=== PATIENT | female | born 1950 | race Caucasian/White ===

== ENCOUNTER 2024-07-17 17:53 | Outpatient (CLI) | payer MEDICARE, MEDICAID, SELFPAY | END 2024-07-17 17:54 | disposition home or self-care (01) | LOC: AMB 07-18 03:46 | PROVIDERS: Visit Provider Family Medicine | DX: R41.82 Altered mental status, unspecified (principal); R11.2 Nausea with vomiting, unspecified | CPT/HCPCS: A0425; A0427 ==

== ENCOUNTER 2024-07-17 18:19 | Observation (INO) | payer MEDICARE, MEDICAID, SELFPAY ==
[2024-07-17] VITALS (7 sets, daily range): BP systolic 125–198; BP diastolic 62–100; PULSE 82–96; RESP 20–32; TEMP 36.9–37.2; O2SAT 84–97; BMI 31.6; BMI 32.9
--- NOTE | 2024-07-17 18:50 | CRLHL7_ITS ---
For Patients: As a result of the Century Cures Act, medical imaging exams and procedure reports are released immediately into your electronic medical record. You may view this report before your referring provider. If you have questions, please contact your health care provider. Indication: Trauma. Technique: CT of the cervical spine performed without IV contrast. Comparison: None available. Findings: The images are severely degraded by patient motion. Suboptimal evaluation for subtle fracture due to the degree of motion artifact. There is no gross vertebral body height loss. Moderate reversal the cervical lordosis. [id number] multilevel disc degeneration. Moderate multilevel cervical spondylosis, with varying degrees of moderate neural foraminal and mild to moderate spinal canal stenosis. The visualized lung apices appear clear. No prevertebral soft tissue swelling. Impression: 1. Severely degraded by patient motion. 2. No gross acute osseous injury as visualized given the degree of motion artifact. 3. Moderate multilevel spondylosis. Please note that all CT scans at this facility use dose modulation, iterative reconstruction, and/or weight-based dosing when appropriate to reduce radiation dose to as low as reasonably achievable. Dictated by Bin Vasquez MD @ 07/17/2024 8:41:43 PM (Electronically Signed)
--- NOTE | 2024-07-17 18:50 | CRLHL7_ITS ---
For Patients: As a result of the Century Cures Act, medical imaging exams and procedure reports are released immediately into your electronic medical record. You may view this report before your referring provider. If you have questions, please contact your health care provider. INDICATION: Fall, shortness of breath. TECHNIQUE: Chest 1 view. COMPARISON: None. FINDINGS: Cardiovascular and mediastinum: Borderline enlarged cardiac silhouette despite portable technique. Atherosclerotic and uncoiled thoracic aorta. Lungs and pleural spaces: Mild diffuse increased interstitial lung markings. Prominent pulmonary arteries within the samina bilaterally. No definite pleural effusion. No pneumothorax. Bones and soft tissues: Suture anchor in the right humeral head. Otherwise, unremarkable for age. IMPRESSION: 1. Mild diffuse increased interstitial lung markings, may represent pulmonary edema. 2. Prominent pulmonary arteries within the samina bilaterally, may reflect pulmonary arterial hypertension. Dictated by Justin Hernandez MD @ 07/17/2024 8:35:26 PM (Electronically Signed)
--- NOTE | 2024-07-17 18:51 | CRLHL7_ITS ---
For Patients: As a result of the Century Cures Act, medical imaging exams and procedure reports are released immediately into your electronic medical record. You may view this report before your referring provider. If you have questions, please contact your health care provider. Indication : Trauma. Technique : CT of the brain without intravenous contrast. Comparison: None relevant available at the time of interpretation. Findings: No acute blurring of the phan-white differentiation. There is no intracranial hemorrhage. The ventricles are proportionate to the cerebral sulci. The 4th ventricle is midline. Basal cisterns appear patent. No abnormal extra-axial fluid collection identified. Moderate parenchymal volume loss. There is moderate patchy periventricular hypodensity, favored to represent chronic ischemic microvascular disease. There is no intracranial mass, mass effect or midline shift identified. Severe dolichoectasia of the vertebrobasilar system. No depressed calvarial fracture. Impression: 1. No acute intracranial process. 2. Moderate chronic ischemic microvascular disease. 3. Severe dolichoectasia of the vertebrobasilar system. Please note that all CT scans at this facility use dose modulation, iterative reconstruction, and/or weight-based dosing when appropriate to reduce radiation dose to as low as reasonably achievable. Dictated by Bin Vasquez MD @ 07/17/2024 8:33:56 PM (Electronically Signed)
--- NOTE | 2024-07-17 19:12 | ED_ITS ---
HPI - General Adult General Chief complaint: Weakness <Donna Dial MD - Last Filed: 07/17/24 20:05> Stated complaint: ambulance <Donna Dial MD - Last Filed: 07/17/24 20:05> Time Seen by Provider: 07/17/24 18:23 <Donna Dial MD - Last Filed: 07/17/24 20:05> Source: EMS <Donna Dial MD - Last Filed: 07/17/24 20:05> Mode of arrival: EMS <Donna Dial MD - Last Filed: 07/17/24 20:05> Limitations: other (Dementia) <Donna Dial MD - Last Filed: 07/17/24 20:05> History of Present Illness HPI narrative: 73-year-old female presenting to the ER today because the staff was concerned about frequent falling. Per the staff at [address] [place] [address], patient has fallen twice in the last 24 hours. Unclear if she has hit her head or not. Patient has been more confused than usual, not making a lot of sense when people speak to her. EMS also found her to be slightly hypoxic. Patient does have a history of dementia that is described as severe with agitation, COPD, gastritis, history of falling, hypo Lesley Pau, diabetes, GERD, hypertension, hypothyroidism. Patient has a new POLST that was signed by her daughter 2 days ago which states that it is comfort cares only including no transfer to the hospital for life- sustaining treatment. Because of this I called the daughter today to make sure she knew that the patient had indeed been transferred to the hospital, patient's daughter, Seven, states that what she meant to fill out was selective treatment and that she does want the patient to be treated for treatable causes of illness, she does not want her to be intubated and no CPR. I discussed with her that she had checked comfort focused treatment only and patient's daughter states that this is a mistake. <Donna Dial MD - Last Filed: 07/17/24 20:05> Related Data Allergies/adverse reactions: Allergies Allergy/AdvReac Type Severity Reaction Status Date / Time codeine Allergy Verified 07/17/24 18:24 <Donna Dial MD - Last Filed: 07/17/24 20:05> Review of Systems Status of ROS: Reports: unobtainable due to mental status <Donna Dial MD - Last Filed: 07/17/24 20:05> [facility] Social History: Social History Non-prescribed substance use: denies use <Donna Dial MD - Last Filed: 07/17/24 20:05> Exam Narrative: Exam Narrative: Overweight patient in no acute distress. Cooperative, follows commands. GCS is 15. She does not make any sense. She answers questions with things that have nothing to do with the question asked. HEENT: Normocephalic atraumatic. Pupils are equally round reactive to light. Extraocular muscles are intact. Conjunctivae are moist without any icterus noted. Dry mucous membranes. Posterior pharynx is normal. Neck is soft. She does not appear uncomfortable with palpation of the cervical spine. Cardiovascular: Heart is regular rate and rhythm S1 and S2 are present without any murmurs. Lungs: Patient has decreased breath sounds bilaterally with bilateral end- expiratory crackles at the bases. Abdomen: Soft and nontender nondistended with normal bowel sounds. No guarding or rebound. Extremities: Bilateral lower extremities are without edema. Skin: Well perfused. <Donna Dial MD - Last Filed: 07/17/24 20:05> Const: Vital Signs, click to edit/add: Vital Signs - 24 hr 07/17/24 18:26 07/17/24 18:36 07/17/24 18:45 Temperature 98.5 F Pulse Rate 96 89 Pulse Rate [Pulse Oximeter] 96 Respiratory Rate 32 H Blood Pressure Blood Pressure [Ri ght Forearm] 198/100 H Pulse Oximetry 84 L 92 94 Oxygen Delivery Me thod Room Air Nasal Cannula Oxygen Flow Rate 3 07/17/24 19:04 07/17/24 19:15 07/17/24 19:28 Temperature Pulse Rate 92 Pulse Rate [Pulse Oximeter] Respiratory Rate Blood Pressure 180/97 H Blood Pressure [Ri ght Forearm] Pulse Oximetry 97 92 Oxygen Delivery Me thod Room Air Oxygen Flow Rate <Donna Dial MD - Last Filed: 07/17/24 20:05> Vital Signs, click to edit/add: Vital Signs - 24 hr 07/17/24 18:26 07/17/24 18:36 08/17/24 18:45 Temperature 98.5 F Pulse Rate 96 89 Pulse Rate [Pulse Oximeter] 96 Respiratory Rate 32 H Blood Pressure Blood Pressure [Ri ght Forearm] 198/100 H Pulse Oximetry 84 L 92 94 Oxygen Delivery Me thod Room Air Nasal Cannula Oxygen Flow Rate 3 07/17/24 19:04 07/17/24 19:15 07/17/24 19:28 Temperature Pulse Rate 92 Pulse Rate [Pulse Oximeter] Respiratory Rate Blood Pressure 180/97 H Blood Pressure [Ri ght Forearm] Pulse Oximetry 97 92 Oxygen Delivery Me thod Room Air Oxygen Flow Rate <Quyen Cade MD - Last Filed: 07/17/24 23:37> Course Course ED Course: EKG, read by me, shows normal sinus rhythm with a pulse of 94. Oxygen saturation was 92% on room air while in the ER. lab work unremarkable. Imaging pending at this time. <Donna Dial MD - Last Filed: 07/17/24 20:05> Vital Signs Vital signs: Initial Vital Signs Temperature 98.5 F 07/17/24 18:26 Temperature Source Temporal Artery Scan 07/17/24 18:26 Pulse Rate 96 07/17/24 18:26 Pulse Rhythm Regular 07/17/24 18:26 Respiratory Rate 32 H 07/17/24 18:26 Blood Pressure 198/100 H 07/17/24 18:26 Blood Pressure Mean 132 H 07/17/24 18:26 Blood Pressure Position Supine 07/17/24 18:26 Pulse Oximetry 84 L 07/17/24 18:26 Oxygen Delivery Method Room Air 07/17/24 18:26 Vital Signs Temperature 98.5 F 07/17/24 18:26 Pulse Rate 96 07/17/24 18:26 Respiratory Rate 32 H 07/17/24 18:26 Blood Pressure 198/100 H 07/17/24 18:26 Pulse Oximetry 84 L 07/17/24 18:26 Oxygen Delivery Method Room Air 07/17/24 18:26 Temperature 98.5 F 07/17/24 18:26 Pulse Rate 92 07/17/24 19:15 Respiratory Rate 32 H 07/17/24 18:26 Blood Pressure 180/97 H 07/17/24 19:04 Pulse Oximetry 92 07/17/24 19:28 Oxygen Delivery Method Room Air 07/17/24 19:28 Oxygen Flow Rate 3 07/17/24 18:45 <Donna Dial MD - Last Filed: 07/17/24 20:05> Initial Vital Signs Temperature 98.5 F 07/17/24 18:26 Temperature Source Temporal Artery Scan 07/17/24 18:26 Pulse Rate 96 07/17/24 18:26 Pulse Rhythm Regular 07/17/24 18:26 Respiratory Rate 32 H 07/17/24 18:26 Blood Pressure 198/100 H 07/17/24 18:26 Blood Pressure Mean 132 H 07/17/24 18:26 Blood Pressure Position Supine 07/17/24 18:26 Pulse Oximetry 84 L 07/17/24 18:26 Oxygen Delivery Method Room Air 07/17/24 18:26 Vital Signs Temperature 98.5 F 07/17/24 18:26 Pulse Rate 96 07/17/24 18:26 Respiratory Rate 32 H 07/17/24 18:26 Blood Pressure 198/100 H 07/17/24 18:26 Pulse Oximetry 84 L 07/17/24 18:26 Oxygen Delivery Method Room Air 07/17/24 18:26 Temperature 98.5 F 07/17/24 18:26 Pulse Rate 92 07/17/24 19:15 Respiratory Rate 32 H 07/17/24 18:26 Blood Pressure 180/97 H 07/17/24 19:04 Pulse Oximetry 92 07/17/24 19:28 Oxygen Delivery Method Room Air 07/17/24 19:28 Oxygen Flow Rate 3 07/17/24 18:45 <Quyen Cade MD - Last Filed: 07/17/24 23:37> Medications Administered Medications: Generic Name Dose Route Start Last Admin Trade Name Freq PRN Reason Stop Dose Admin Furosemide 40 mg 07/17/24 22:38 07/17/24 22:44 Furosemide 40 Mg Tablet PO 07/17/24 22:39 40 mg ONCE ONE Administration Discontinued Medications Generic Name Dose Route Start Last Admin Trade Name Freq PRN Reason Stop Dose Admin Furosemide 40 mg 07/17/24 20:40 07/17/24 22:44 Furosemide 10 Mg/Ml Inj IVP 07/17/24 20:41 Not Given ONCE ONE Potassium Bicarbonate 50 meq 07/17/24 20:40 07/17/24 21:00 Potassium Bicarb 25 Meq Effervescent Tab PO 07/17/24 20:41 50 meq ONCE ONE Administration <Donna Dial MD - Last Filed: 07/17/24 20:05> Generic Name Dose Route Start Last Admin Trade Name Freq PRN Reason Stop Dose Admin Furosemide 40 mg 07/17/24 22:38 07/17/24 22:44 Furosemide 40 Mg Tablet PO 07/17/24 22:39 40 mg ONCE ONE Administration Discontinued Medications Generic Name Dose Route Start Last Admin Trade Name Freq PRN Reason Stop Dose Admin Furosemide 40 mg 07/17/24 20:40 07/17/24 22:44 Furosemide 10 Mg/Ml Inj IVP 07/17/24 20:41 Not Given ONCE ONE Potassium Bicarbonate 50 meq 07/17/24 20:40 07/17/24 21:00 Potassium Bicarb 25 Meq Effervescent Tab PO 07/17/24 20:41 50 meq ONCE ONE Administration <Quyen Cade MD - Last Filed: 07/17/24 23:37> Medical Decision Making MDM Narrative Medical decision making narrative: 73-year-old female with dementia, frequent falls. <Donna Dial MD - Last Filed: 07/17/24 20:05> 73-year-old female with dementia, frequent falls. I took this patient over from . Currently pending were a CT of the head neck, radiological over-read of the chest x-ray and laboratory findings. Patient does have elevated proBNP with no previous values for comparison. While she did not have any acute lower extremity edema rales her chest x-ray definitely does look like increased pulmonary edema. The patient was given Lasix 40 mg p.o. she did not have an IV in at this time. She was also given potassium 50 mEq as potassium is low at 3.2. COVID was negative. Nursing staff notes that trying to get patient up to the commode involved significant assistance. Nursing staff is able to talk to [employer] and they state that this patient's daughter actually works at [employer] and she was admitted as she did need 2 person help to move from bed to chair and had dementia. However, in the last few days they note that she is seeing things and she requires much more assistance and this is been a change. On my exam patient is pleasant. She has occasional odd statement but is smiling. Following simple commands. Moving all extremities. Face symmetrical. Heart with a regular rate and rhythm. Lungs are with expiratory wheezing. No crackles are noted. Abdomen is soft nontender. Lower extremities with scant peripheral edema. Assessment/plan: 1. New onset congestive heart failure-proBNP elevated to 1300 with no previous values for comparison and chest x-ray positive for increased lung markings/pulmonary edema. Lasix 40 mg p.o. initially given as we were hopeful that perhaps we could get Galilea back to her usp. However she is so weak and therefore will need to keep her in the hospital. She will have an IV placed. Will add the EKG as well as troponin to current labs. Addendum: Troponin is negative and EKG is reassuring. 2. Hypokalemia-3.2 upon initial check. Have given her 50 mEq p.o.. 3. Weakness and increased confusion-patient does have baseline dementia but per the usp much more confusion in the past 48 hours. white count within normal limits and COVID is negative. Lactate normal. CRP P elevated at 2.8. Currently awaiting urinalysis. Addendum: Urinalysis without evidence of UTI. 4. Disposition-admit under the care of Dr. Skaggs, hospitalist. <Quyen Cade MD - Last Filed: 07/17/24 23:37> Lab Data Labs: Lab Results 07/17/24 07/17/24 07/17/24 Range/Units 19:12 22:20 22:32 WBC 9.96 (4.50-11.00) K/uL RBC 4.29 (4.00-5.20) m/uL Hgb 12.1 (12.0-16.0) gm/dL Hct 39.6 (33.0-51.0) % MCV 92 (80-100) fL MCH 28 (26-34) pg MCHC 31 L (32-36) gm/dL RDW Coeff of Jase 15.2 (11.5-15.5) % Plt Count 164 (140-440) K/uL Neut % (Auto) 84.7 H (42.0-72.0) % Lymph % (Auto) 9.0 L (20-44) % [place] % (Auto) 4.7 (0.0-11.0) % Eos % (Auto) 1.1 (0.0-7.0) % Baso % (Auto) 0.3 (0.0-3.0) % Neut # (Auto) 8.40 H (1.7-7.0) K/uL Lymph # (Auto) 0.90 (0.90-2.90) K/uL [place] # (Auto) 0.50 (0.00-0.90) K/UL Eos # (Auto) 0.11 (0.00-0.50) K/uL Baso # (Auto) 0.03 (0.00-0.30) K/uL Abs Immat Gran (auto) 0.02 (0.00-0.30) K/uL Imm/Tot Granulo (auto) 0.2 % Sodium 141 (135-149) mmol/L Potassium 3.2 L (3.6-5.1) mmol/L Chloride 107 (96-114) mmol/L Carbon Dioxide 27 (20-32) mmol/L Anion Gap 7 (7-15) mEq/L BUN 14 (7-30) mg/dL Creatinine 0.7 (0.5-1.5) mg/dL Estimated Creat Clear 49.03 Estimated GFR 90 ml/min Glucose 110 (60-115) mg/dL Lactate 1.5 (0.5-1.9) mmol/L Calcium 8.9 (8.4-10.6) mg/dL Magnesium 1.7 (1.5-2.6) mg/dL Total Bilirubin 0.7 (0.1-1.5) mg/dL Direct Bilirubin 0.4 (0.0-0.5) mg/dL AST 17 (12-35) U/L ALT 16 (4-35) U/L Alkaline Phosphatase 82 (40-150) U/L Troponin I < 0.01 L (0.01-0.04) ng/mL C-Reactive Protein 2.8 H (0.5-1.0) mg/dL NT-Pro-B Natriuret Pep 1300 pg/mL Total Protein 6.9 (6.0-8.3) g/dL Albumin 4.3 (3.3-5.0) g/dL Urine Color Yellow (Yellow) Urine Appearance Slightly Cloudy A (Clear) Urine pH 5.5 (5.0-8.5) Ur Specific [place] 1.020 (1.000-1.030) Urine Protein Negative (Negative) Urine Glucose (UA) Negative (Negative) Urine Ketones Negative (Negative) Urine Blood 3+ A (Negative) Urine Nitrite Negative (Negative) Urine Bilirubin Negative (Negative) Urine Urobilinogen 0.2 (0.2-1.0) Ur Leukocyte Esterase Negative (Negative) Urine RBC 2-5 A (0-2) Urine WBC 0-2 (0-5) Ur Squamous Epith Cells Few (None-Few) Urine Bacteria None (None) SARS-CoV-2 (PCR) Negative SARS-CoV-2 (Negative) Influenza Type A (PCR) Negative PCR FLU A (Negative) Influenza Type B (PCR) Negative PCR FLU B (Negative) RSV (PCR) Negative PCR RSV (Negative) Lab Acknowledgement Test Added <Donna Dial MD - Last Filed: 07/17/24 20:05> Lab Results 07/17/24 07/17/24 07/17/24 Range/Units 19:12 22:20 22:32 WBC 9.96 (4.50-11.00) K/uL RBC 4.29 (4.00-5.20) m/uL Hgb 12.1 (12.0-16.0) gm/dL Hct 39.6 (33.0-51.0) % MCV 92 (80-100) fL MCH 28 (26-34) pg MCHC 31 L (32-36) gm/dL RDW Coeff of Jase 15.2 (11.5-15.5) % Plt Count 164 (140-440) K/uL Neut % (Auto) 84.7 H (42.0-72.0) % Lymph % (Auto) 9.0 L (20-44) % [place] % (Auto) 4.7 (0.0-11.0) % Eos % (Auto) 1.1 (0.0-7.0) % Baso % (Auto) 0.3 (0.0-3.0) % Neut # (Auto) 8.40 H (1.7-7.0) K/uL Lymph # (Auto) 0.90 (0.90-2.90) K/uL [place] # (Auto) 0.50 (0.00-0.90) K/UL Eos # (Auto) 0.11 (0.00-0.50) K/uL Baso # (Auto) 0.03 (0.00-0.30) K/uL Abs Immat Gran (auto) 0.02 (0.00-0.30) K/uL Imm/Tot Granulo (auto) 0.2 % Sodium 141 (135-149) mmol/L Potassium 3.2 L (3.6-5.1) mmol/L Chloride 107 (96-114) mmol/L Carbon Dioxide 27 (20-32) mmol/L Anion Gap 7 (7-15) mEq/L BUN 14 (7-30) mg/dL Creatinine 0.7 (0.5-1.5) mg/dL Estimated Creat Clear 49.03 Estimated GFR 90 ml/min Glucose 110 (60-115) mg/dL Lactate 1.5 (0.5-1.9) mmol/L Calcium 8.9 (8.4-10.6) mg/dL Magnesium 1.7 (1.5-2.6) mg/dL Total Bilirubin 0.7 (0.1-1.5) mg/dL Direct Bilirubin 0.4 (0.0-0.5) mg/dL AST 17 (12-35) U/L ALT 16 (4-35) U/L Alkaline Phosphatase 82 (40-150) U/L Troponin I < 0.01 L (0.01-0.04) ng/mL C-Reactive Protein 2.8 H (0.5-1.0) mg/dL NT-Pro-B Natriuret Pep 1300 pg/mL Total Protein 6.9 (6.0-8.3) g/dL Albumin 4.3 (3.3-5.0) g/dL Urine Color Yellow (Yellow) Urine Appearance Slightly Cloudy A (Clear) Urine pH 5.5 (5.0-8.5) Ur Specific [place] 1.020 (1.000-1.030) Urine Protein Negative (Negative) Urine Glucose (UA) Negative (Negative) Urine Ketones Negative (Negative) Urine Blood 3+ A (Negative) Urine Nitrite Negative (Negative) Urine Bilirubin Negative (Negative) Urine Urobilinogen 0.2 (0.2-1.0) Ur Leukocyte Esterase Negative (Negative) Urine RBC 2-5 A (0-2) Urine WBC 0-2 (0-5) Ur Squamous Epith Cells Few (None-Few) Urine Bacteria None (None) SARS-CoV-2 (PCR) Negative SARS-CoV-2 (Negative) Influenza Type A (PCR) Negative PCR FLU A (Negative) Influenza Type B (PCR) Negative PCR FLU B (Negative) RSV (PCR) Negative PCR RSV (Negative) Lab Acknowledgement Test Added <Quyen Cade MD - Last Filed: 07/17/24 23:37> Imaging Data Chest x-ray: Attestation: I have reviewed the pertinent imaging results. <Quyen Cade MD - Last Filed: 07/17/24 23:37> Radiologist's impression: Cardiovascular and mediastinum: Borderline enlarged cardiac silhouette despite portable technique. Atherosclerotic and uncoiled thoracic aorta. Lungs and pleural spaces: Mild diffuse increased interstitial lung markings. Prominent pulmonary arteries within the samina bilaterally. No definite pleural effusion. No pneumothorax. Bones and soft tissues: Suture anchor in the right humeral head. Otherwise, unremarkable for age. IMPRESSION: 1. Mild diffuse increased interstitial lung markings, may represent pulmonary edema. 2. Prominent pulmonary arteries within the samina bilaterally, may reflect pulmonary arterial hypertension. <Quyen Cade MD - Last Filed: 07/17/24 23:37> CT scan - head: Attestation: I have reviewed the pertinent imaging results. <Quyen Cade MD - Last Filed: 07/17/24 23:37> Radiologist's impression: No acute blurring of the phan-white differentiation. There is no intracranial hemorrhage. The ventricles are proportionate to the cerebral sulci. The 4th ventricle is midline. Basal cisterns appear patent. No abnormal extra-axial fluid collection identified. Moderate parenchymal volume loss. There is moderate patchy periventricular hypodensity, favored to represent chronic ischemic microvascular disease. There is no intracranial mass, mass effect or midline shift identified. Severe dolichoectasia of the vertebrobasilar system. No depressed calvarial fracture. Impression: 1. No acute intracranial process. 2. Moderate chronic ischemic microvascular disease. 3. Severe dolichoectasia of the vertebrobasilar system. <Quyen Cade MD - Last Filed: 07/17/24 23:37> Cervical spine CT: Attestation: I have reviewed the pertinent imaging results. <Quyen Cade MD - Last Filed: 07/17/24 23:37> My impression: I do not note any acute findings <Quyen Cade MD - Last Filed: 07/17/24 23:37> Radiologist's impression: The images are severely degraded by patient motion. Suboptimal evaluation for subtle fracture due to the degree of motion artifact. There is no gross vertebral body height loss. Moderate reversal the cervical lordosis. [id number] multilevel disc degeneration. Moderate multilevel cervical spondylosis, with varying degrees of moderate neural foraminal and mild to moderate spinal canal stenosis. The visualized lung apices appear clear. No prevertebral soft tissue swelling. Impression: 1. Severely degraded by patient motion. 2. No gross acute osseous injury as visualized given the degree of motion artifact. 3. Moderate multilevel spondylosis. <Quyen Cade MD - Last Filed: 07/17/24 23:37> ECG Data Attestation: I personally reviewed and interpreted this ECG as follows: <Quyen Cade MD - Last Filed: 07/17/24 23:37> Interpretation: EKG by my read shows sinus rhythm. Occasional PVC see. I do not note any acute ST or T-wave changes. QT and NV intervals within normal limits. <Quyen Cade MD - Last Filed: 07/17/24 23:37> Discharge Plan Discharge Clinical Impression: Falls frequently, New onset of congestive heart failure Dementia Qualifiers: Dementia type: unspecified type Dementia severity: unspecified severity Dementia behavioral or psychological symptom: unspecified whether behavioral, psychotic, or mood disturbance or anxiety Qualified Code(s): F03.90 - Unspecified dementia, unspecified severity, without behavioral disturbance, psychotic disturbance, mood disturbance, and anxiety <Donan Dial MD - Last Filed: 07/17/24 20:05> Patient Disposition: Admitted As Observation <Donna Dial MD - Last Filed: 07/17/24 20:05> Condition: Stable <Donna Dial MD - Last Filed: 07/17/24 20:05>
[2024-07-17 19:18] LABS: Lactate* 1.5 mmol/L (0.5-1.9)
[2024-07-17 19:20] LABS: Basophils Absolute Auto 0.03 K/uL (0.00-0.30); Basophils Percent Auto 0.3 % (0.0-3.0); Eosinophils Absolute Auto 0.11 K/uL (0.00-0.50); Eosinophils Percent Auto 1.1 % (0.0-7.0); Hematocrit 39.6 % (33.0-51.0); Hemoglobin* 12.1 gm/dL (12.0-16.0); Immature Granulocytes Abs Auto 0.02 K/uL (0.00-0.30); Immature Granulocytes Pct Auto 0.2 %; Mean Corpuscular HGB Conc 31 gm/dL (32-36); Mean Corpuscular Hemoglobin 28 pg (26-34); Mean Corpuscular Volume 92 fL (80-100); Monocytes Percent Auto 4.7 % (0.0-11.0); Neutrophils Percent Auto 84.7 % (42.0-72.0); Platelet Count* 164 K/uL (140-440); RDW Coefficient of Variation % 15.2 % (11.5-15.5); Red Blood Count 4.29 m/uL (4.00-5.20); Slide Review Reflex No; White Blood Count* 9.96 K/uL (4.50-11.00)
[2024-07-17 19:36] LABS: Albumin* 4.3 g/dL (3.3-5.0); Chloride* 107 mmol/L (96-114); Sodium* 141 mmol/L (135-149)
[2024-07-17 19:37] LABS: Potassium* 3.2 mmol/L (3.6-5.1)
[2024-07-17 19:38] LABS: Creatinine* 0.7 mg/dL (0.5-1.5); Est. Creatinine Clearance* 49.03; Estimated Glomerular Filt Rate 90 ml/min
[2024-07-17 19:39] LABS: Alanine Aminotransferase* 16 U/L (4-35); Alkaline Phosphatase* 82 U/L (40-150); Anion Gap 7 mEq/L (7-15); Aspartate Amino Transferase* 17 U/L (12-35); Bilirubin Direct* 0.4 mg/dL (0.0-0.5); Bilirubin Total* 0.7 mg/dL (0.1-1.5); Blood Urea Nitrogen* 14 mg/dL (7-30); Carbon Dioxide* 27 mmol/L (20-32); Total Protein* 6.9 g/dL (6.0-8.3)
[2024-07-17 19:40] LABS: Calcium* 8.9 mg/dL (8.4-10.6); Glucose* 110 mg/dL (60-115); Magnesium* 1.7 mg/dL (1.5-2.6)
[2024-07-17 19:42] LABS: C Reactive Protein* 2.8 mg/dL (0.5-1.0)
[2024-07-17 19:55] LABS: NT Pro B Type NatriureticPept* 1300 pg/mL; Troponin I* < 0.01 ng/mL (0.01-0.04)
[2024-07-17 20:01] LABS: PCR FLU A Negative PCR FLU A (Negative); PCR FLU B Negative PCR FLU B (Negative); PCR RSV Negative PCR RSV (Negative); SARS PCR* Negative SARS-CoV-2 (Negative)
[2024-07-17] MEDS: POTASSIUM BICARB 25 MEQ EFFERVESCENT TAB 50 MEQ PO (21:00)
[2024-07-17 22:42] LABS: Appearance Urine Slightly Cloudy (Clear); Bilirubin Urine Negative (Negative); Blood Urine 3+ (Negative); Color Urine Yellow (Yellow); Glucose Urine Negative (Negative); Ketones Urine Negative (Negative); Leukocyte Esterase Urine Negative (Negative); Nitrite Urine Negative (Negative); Protein Urine Negative (Negative); Urobilinogen Urine 0.2 (0.2-1.0); pH Urine 5.5 (5.0-8.5)
[2024-07-17] MEDS: FUROSEMIDE 40 MG TABLET PO (22:44)
[2024-07-17 23:04] LABS: Squamous Epithelial Cell Urine Few (None-Few); WBC Urine 0-2 (0-5)
--- NOTE | 2024-07-17 23:50 | PM.IMHP1 ---
Hospitalist- H&P: HPI History of Present Illness Time Seen by Provider: 23:51 Date Seen: 07/17/24 Chief complaint: ambulance Narrative: Galilea Steinberg is a 73 year old female with severe dementia. When she arrived on the floor, her family was not available to give history. History is gathered from the ER physician our EMR and the [facility] EMR. Galilea had been living at home up until few days ago when she was admitted to [address] [place] [address], where her daughter works, for frequent falls and decline at home. From what I can gather this appears to be in acute on chronic issue as there are a lot of notes over the past few years about frequent falls, she has used a walker for 5 years, PT and OT were ordered in January, but were unable to start due to no home care service in that area [place]. It sounds like falls have become more frequent in the last few days to weeks and she has developed confusion since being admitted to [facility]. She is now requiring 3-4 people to transfer her where as she had been independent at home just a few days before. Here is a recent timeline of events: 06/22/24 Seen in [facility] ED for fall. Diagnosed with UTI, started on Keflex for 7days. 06/24/24 Saw Aileen Chun P.A.-C. in clinic, frequent falls over the past year noted, about one fall per week, gabapentin decreased, in-home PT/OT ordered. 07/13/24 [place] ER for weakness, mild hypokalemia. 07/15/24 admitted to [facility] alf facility In the emergency department she was treated for presumed heart failure exacerbation although she has no known history of heart failure and no clinical symptoms, she does have an elevated proBNP and possible pulmonary edema on her chest x-ray. Due to the patient's confusion, an IV was not placed as she would likely just pulled this out. Furosemide was therefore given orally. Review of Systems Status of ROS: Reports: unobtainable due to mental status [facility] Medical History (Updated 07/18/24 @ 01:07 by Sarah Skaggs MD) Systolic murmur ?R01.1 - Cardiac murmur, unspecified (ICD-10) Falls frequently ?R29.6 - Repeated falls (ICD-10) Dementia ?F03.90 - Unspecified dementia, unspecified severity, without behavioral disturbance, psychotic disturbance, mood disturbance, and anxiety (ICD-10) Protein calorie malnutrition ?E46 - Unspecified protein-calorie malnutrition (ICD-10) Hypokalemia ?E87.6 - Hypokalemia (ICD-10) Gastritis ?K29.70 - Gastritis, unspecified, without bleeding (ICD-10) Hypertension ?I10 - Essential (primary) hypertension (ICD-10) Hypothyroidism ?E03.9 - Hypothyroidism, unspecified (ICD-10) Hyperlipidemia ?E78.5 - Hyperlipidemia, unspecified (ICD-10) GERD (gastroesophageal reflux disease) ?K21.9 - Gastro-esophageal reflux disease without esophagitis (ICD-10) Type 2 diabetes mellitus ?E11.9 - Type 2 diabetes mellitus without complications (ICD-10) COPD (chronic obstructive pulmonary disease) ?J44.9 - Chronic obstructive pulmonary disease, unspecified (ICD-10) Social History (Updated 07/18/24 @ 00:45 by Sarah Skaggs MD) Narrative: As above in HPI, patient had been living independently at home until just a few days ago at which time she was admitted to [facility] for frequent falls. Her daughter works at [address] [place] [address] and is involved in mother's care. 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 Galilea was a daily smoker until she was admitted to [facility]. According to her pulse she is DNR/DNI, antibiotics if needed, comfort focused treatment. What is your current living situation?: unable to answer Problems where you live: no known problems Problems where you live details: N/A In the past 12 months, utilities in danger of being shut off: unable to answer In past 12 months, lack of transportation kept you from medical appts, meetings, work, or getting things needed for daily living: unable to answer In the past 12 mos, have been you worried that your food would run out before you had money to buy more?: unable to answer In the past 12 mos, the food you bought just didn't last and you didn't have money to buy more?: unable to answer Highest level of school completed/degree received: don't know Smoking Status: Unknown if ever smoked Second hand tobacco smoke exposure: No Non-prescribed substance use: denies use Non-prescribed substance use details: Pt unable to answer How often does anyone, including family, friends and others, physically hurt you: unable to answer How often does anyone, including family, friends and others, insult or talk down to you: unable to answer How often does anyone, including family, friends and others, threaten you with harm: unable to answer How often does anyone, including family, friends and others, scream or curse at you: unable to answer Meds Home Medications and Allergies Home Medications ?Medication ?Instructions ?Recorded ?Confirmed ?Type albuterol sulfate 90 mcg/actuation 2 puff inhalation Q4H PRN 07/18/24 07/18/24 History aerosol inhaler aspirin 81 mg chewable tablet 1 tab PO DAILY 07/18/24 07/18/24 History atorvastatin 80 mg tablet 80 mg PO DAILY 07/18/24 07/18/24 History ezetimibe 10 mg tablet 10 mg PO DAILY 07/18/24 07/18/24 History gabapentin 300 mg capsule 300 mg PO 3XD 07/18/24 07/18/24 History levothyroxine 125 mcg tablet 125 mcg PO DAILY 07/18/24 07/18/24 History lisinopril 30 mg tablet 30 mg PO DAILY 07/18/24 07/18/24 History metoprolol succinate 50 mg 100 mg PO DAILY 07/18/24 07/18/24 History tablet,extended release 24 hr olanzapine 5 mg tablet See Rx Instructions PO .COMPLEX 07/18/24 07/18/24 History omeprazole 20 mg capsule,delayed 20 mg PO DAILY 07/18/24 07/18/24 History release sertraline 100 mg tablet 200 mg PO HS 07/18/24 07/18/24 History Allergies Allergy/AdvReac Type Severity Reaction Status Date / Time codeine Allergy Verified 07/17/24 18:24 Exam Narrative: Exam Narrative: General: No acute distress. Sleeping, arousable, oriented to self. Confused. Not following directions. HEENT: Normocephalic atraumatic, pupils equally round and reactive to light and accommodation. Oropharynx clear. Mucous membranes are moist. No cervical lymphadenopathy, thyromegaly or carotid bruits. No JVD. Cardiovascular: Regular rate and rhythm. No murmurs, gallops, or rubs. Chest: No increased work of breathing. Poor inspiratory effort. Possibly basilar crackles on the left, otherwise clear. No wheezes. Abdomen: Bowel sounds present. Soft, nondistended, nontender. No hepatosplenomegaly or masses. Genitourinary: Normal external female genitalia, Burnette in place. Extremities: Trace bilaterally ankle edema, no cyanosis or clubbing. Skin: No jaundice, no pallor, no rashes. Neuro: Not following commands. Nothing focal noted. Const: Vital Signs, click to edit/add: Vital Signs - 24 hr 07/17/24 18:26 07/17/24 18:36 07/17/24 18:45 Temperature 98.5 F Pulse Rate 96 89 Pulse Rate [Pulse Oximeter] 96 Pulse Rate [Right Pulse Oximeter] Respiratory Rate 32 H Blood Pressure Blood Pressure [Ri ght Arm] Blood Pressure [Ri ght Forearm] 198/100 H Pulse Oximetry 84 L 92 94 Oxygen Delivery Me thod Room Air Nasal Cannula Oxygen Flow Rate 3 07/17/24 19:04 07/17/24 19:15 07/17/24 19:28 Temperature Pulse Rate 92 Pulse Rate [Pulse Oximeter] Pulse Rate [Right Pulse Oximeter] Respiratory Rate Blood Pressure 180/97 H Blood Pressure [Ri ght Arm] Blood Pressure [Ri ght Forearm] Pulse Oximetry 97 92 Oxygen Delivery Me thod Room Air Oxygen Flow Rate 07/17/24 23:33 Temperature 98.9 F Pulse Rate Pulse Rate [Pulse Oximeter] Pulse Rate [Right Pulse Oximeter] 82 Respiratory Rate 20 Blood Pressure Blood Pressure [Ri ght Arm] 125/62 Blood Pressure [Ri ght Forearm] Pulse Oximetry 91 Oxygen Delivery Me thod Room Air Oxygen Flow Rate Hospitalist - H&P: Result Labs Labs: Short CBC 07/17/24 Range/Units 19:12 WBC 9.96 (4.50-11.00) K/uL Hgb 12.1 (12.0-16.0) gm/dL Hct 39.6 (33.0-51.0) % Plt Count 164 (140-440) K/uL BMP 07/17/24 19:12 Sodium 141 Potassium 3.2 L Chloride 107 Carbon Dioxide 27 BUN 14 Creatinine 0.7 Glucose 110 Calcium 8.9 Cardiac Enzymes 07/17/24 Range/Units 19:12 Troponin I < 0.01 L (0.01-0.04) ng/mL Liver Function 07/17/24 Range/Units 19:12 Total Bilirubin 0.7 (0.1-1.5) mg/dL Direct Bilirubin 0.4 (0.0-0.5) mg/dL AST 17 (12-35) U/L ALT 16 (4-35) U/L Alkaline Phosphatase 82 (40-150) U/L Albumin 4.3 (3.3-5.0) g/dL Urine 07/17/24 Range/Units 22:20 Urine Color Yellow (Yellow) Urine Appearance Slightly Cloudy A (Clear) Urine pH 5.5 (5.0-8.5) Ur Specific [place] 1.020 (1.000-1.030) Urine Protein Negative (Negative) Urine Glucose (UA) Negative (Negative) Ordering Physician: Donna Dial M.D. Date of Service: 07/17/24 Procedure(s): CT cervical spine wo con Accession Number(s): [id number] cc: Donna Dial M.D.; Provider,Not a Local~ For Patients: As a result of the Cures Act, medical imaging exams and procedure reports are released immediately into your electronic medical record. You may view this report before your referring provider. If you have questions, please contact your health care provider. Indication: Trauma. Technique: CT of the cervical spine performed without IV contrast. Comparison: None available. Findings: The images are severely degraded by patient motion. Suboptimal evaluation for subtle fracture due to the degree of motion artifact. There is no gross vertebral body height loss. Moderate reversal the cervical lordosis. Ficz-[id number]-[id number] multilevel disc degeneration. Moderate multilevel cervical spondylosis, with varying degrees of moderate neural foraminal and mild to moderate spinal canal stenosis. The visualized lung apices appear clear. No prevertebral soft tissue swelling. Impression: 1. Severely degraded by patient motion. 2. No gross acute osseous injury as visualized given the degree of motion artifact. 3. Moderate multilevel spondylosis. Please note that all CT scans at this facility use dose modulation, iterative reconstruction, and/or weight-based dosing when appropriate to reduce radiation dose to as low as reasonably achievable. Dictated by Bin Vasquez MD @ 07/17/2024 8:41:43 PM (Electronically Signed) Ordering Physician: Donna Dial M.D. Date of Service: 07/17/24 Procedure(s): XR chest 1V Accession Number(s): [id number] cc: Donna Dial M.D.; Provider,Not a Local~ For Patients: As a result of the Cures Act, medical imaging exams and procedure reports are released immediately into your electronic medical record. You may view this report before your referring provider. If you have questions, please contact your health care provider. INDICATION: Fall, shortness of breath. TECHNIQUE: Chest 1 view. COMPARISON: None. FINDINGS: Cardiovascular and mediastinum: Borderline enlarged cardiac silhouette despite portable technique. Atherosclerotic and uncoiled thoracic aorta. Lungs and pleural spaces: Mild diffuse increased interstitial lung markings. Prominent pulmonary arteries within the samina bilaterally. No definite pleural effusion. No pneumothorax. Bones and soft tissues: Suture anchor in the right humeral head. Otherwise, unremarkable for age. IMPRESSION: 1. Mild diffuse increased interstitial lung markings, may represent pulmonary edema. 2. Prominent pulmonary arteries within the samina bilaterally, may reflect pulmonary arterial hypertension. Dictated by Justin Hernandez MD @ 07/17/2024 8:35:26 PM (Electronically Signed) Ordering Physician: Donna Dial M.D. Date of Service: 07/17/24 Procedure(s): CT head/brain wo con Accession Number(s): [id number] cc: Donna Dial M.D.; Provider,Not a Local~ For Patients: As a result of the Cures Act, medical imaging exams and procedure reports are released immediately into your electronic medical record. You may view this report before your referring provider. If you have questions, please contact your health care provider. Indication : Trauma. Technique : CT of the brain without intravenous contrast. Comparison: None relevant available at the time of interpretation. Findings: No acute blurring of the phan-white differentiation. There is no intracranial hemorrhage. The ventricles are proportionate to the cerebral sulci. The 4th ventricle is midline. Basal cisterns appear patent. No abnormal extra-axial fluid collection identified. Moderate parenchymal volume loss. There is moderate patchy periventricular hypodensity, favored to represent chronic ischemic microvascular disease. There is no intracranial mass, mass effect or midline shift identified. Severe dolichoectasia of the vertebrobasilar system. No depressed calvarial fracture. Impression: 1. No acute intracranial process. 2. Moderate chronic ischemic microvascular disease. 3. Severe dolichoectasia of the vertebrobasilar system. Please note that all CT scans at this facility use dose modulation, iterative reconstruction, and/or weight-based dosing when appropriate to reduce radiation dose to as low as reasonably achievable. Dictated by Bin Vasquez MD @ 07/17/2024 8:33:56 PM (Electronically Signed) Assessment and Plan Assessment and plan (1) Delirium: Problem comment: - has history of severe dementia and recently changed living situations from living independently to now living at [address] [place] [address]. I think this has likely contributed to her rapid mental decline over the last few days. - Minimize use of restraints, placed near nurses station, reorient frequently, allow for rest full night if possible, limit narcotics and sedatives. Status: Acute (2) Dementia: Status: Chronic (3) Weakness: Problem comment: - appears to be acute on chronic, cause is unclear. Has declined over at least the past year and attempts to get her home PT and OT had failed. Patient admitted to [address] [place] [address] 2 days ago. Will have PT and OT evaluate tomorrow. Status: Acute (4) New onset of congestive heart failure: Problem comment: Patient did have an echocardiogram recently, in January, but I do not have the results of that. She also saw Cardiology around that same time, again I do not have those notes. She was given oral furosemide in the emergency department and she has a Burnette catheter in place from the emergency department. Will continue oral furosemide and monitor. Although she may have some underlying CHF, it is unclear if this is in exacerbation and unclear if it is contributing to her her recent mental and physical decline. Status: Acute (5) Type 2 diabetes mellitus: Problem comment: - mealtime and bedtime Accu-Cheks with insulin sliding scale. Status: Chronic (6) Hyperlipidemia: Problem comment: Hold atorvastatin in the setting of possible acute weakness Status: Chronic (7) Hypothyroidism: Problem comment: Patient had TSH checked while at [facility] last week. I do not have the result. Continue current dose of levothyroxine. Status: Chronic (8) Hypertension: Problem comment: Continue antihypertensives Status: Chronic (9) Protein calorie malnutrition: Problem comment: Nutrition consult and nutritional supplementation Status: Chronic
[2024-07-18] MEDS: GABAPENTIN 300 MG CAPSULE PO ×2 (01:53→08:37)
[2024-07-18] MEDS: OLANZapine 5 MG TAB.RAPDIS PO (01:53)
[2024-07-18 03:00] VITALS: BP 124/72; PULSE 78; RESP 20; TEMP 36.9; O2SAT 91
[2024-07-18] MEDS: LEVOTHYROXINE 125 MCG TABLET PO (06:27)
--- NOTE | 2024-07-18 06:33 | PC.NURSE ---
End of shift note: Pt alert & oriented to self only. She believed it was the year 1949 when asked about time and was also confused to place. No IV in place though this has been approved by MD Skaggs. VSS and pt has been afebrile. Pt on RA throughout the shift. She is noted to have a non-productive moist intermittent cough. Burnette catheter in place. Pt requires assist of 2 with repositioning in bed. Pt given PRN Zyprexa early this morning for agitation noted: pt having delirium seeing bugs on the wall, making sarcastic comments to staff and attempting to sit up at side of bed without using call light. Bed alarm utilized throughout the shift due to fall risk and call light has been within reach. Gripper socks on.
[2024-07-18 07:00] VITALS: BP 119/70; PULSE 78; RESP 18; TEMP 36.4; O2SAT 91
[2024-07-18] MEDS: ACETAMINOPHEN 325 MG TABLET 650 MG PO (07:23)
[2024-07-18 08:25] LABS: Basophils Absolute Auto 0.02 K/uL (0.00-0.30); Basophils Percent Auto 0.2 % (0.0-3.0); Eosinophils Percent Auto 0.9 % (0.0-7.0); Hematocrit 36.6 % (33.0-51.0); Hemoglobin* 11.5 gm/dL (12.0-16.0); Immature Granulocytes Abs Auto 0.02 K/uL (0.00-0.30); Immature Granulocytes Pct Auto 0.2 %; Lymphocytes Percent Auto 12.1 % (20-44); Mean Corpuscular HGB Conc 31 gm/dL (32-36); Mean Corpuscular Hemoglobin 29 pg (26-34); Mean Corpuscular Volume 91 fL (80-100); Monocytes Percent Auto 5.7 % (0.0-11.0); Neutrophils Percent Auto 80.9 % (42.0-72.0); Platelet Count* 152 K/uL (140-440); RDW Coefficient of Variation % 15.1 % (11.5-15.5); Red Blood Count 4.04 m/uL (4.00-5.20); White Blood Count* 10.53 K/uL (4.50-11.00)
[2024-07-18 08:29] LABS: Slide Review Reflex No
[2024-07-18] MEDS: POTASSIUM CHLORIDE 10 MEQ CAPSULE ER 20 MEQ PO (08:37)
[2024-07-18] MEDS: lisinopriL 10 MG TABLET 30 MG PO (08:38)
[2024-07-18] MEDS: METOPROLOL SUCCINATE (XL) 50 MG TAB 100 MG PO (08:38)
[2024-07-18] MEDS: OMEPRAZOLE 20 MG CAPSULE DR PO (08:39)
[2024-07-18] MEDS: TORSEMIDE 20 MG TABLET PO (08:40)
[2024-07-18] MEDS: ASPIRIN 81 MG TAB.CHEW PO (08:40)
[2024-07-18 08:51] LABS: Chloride* 104 mmol/L (96-114); Potassium* 3.3 mmol/L (3.6-5.1); Sodium* 139 mmol/L (135-149)
[2024-07-18 08:53] LABS: Creatinine* 0.6 mg/dL (0.5-1.5); Est. Creatinine Clearance* 49.03; Estimated Glomerular Filt Rate 94 ml/min
[2024-07-18 08:54] LABS: Anion Gap 8 mEq/L (7-15); Blood Urea Nitrogen* 13 mg/dL (7-30); Calcium* 8.6 mg/dL (8.4-10.6); Carbon Dioxide* 27 mmol/L (20-32); Glucose* 114 mg/dL (60-115)
[2024-07-18] MEDS: POTASSIUM BICARB 25 MEQ EFFERVESCENT TAB PO (10:04)
--- NOTE | 2024-07-18 11:55 | PC.NURSE ---
Pt discharged back to assisted living home via wheelchair @ [id number]. Discharge papers signed. Room check complete.
--- NOTE | 2024-07-18 12:46 | P.DS_ITS ---
DS: Providers Provider Date Seen: 07/18/24 Date of admission: 07/17/24 23:16 Primary care physician: Not a Local Provider Admitting Clinician: Sarah Skaggs MD Attending Physician on discharge: Dimirtios Plunkett MD Date of Discharge: 07/18/24 DS: Diagnosis Discharge Diagnosis (1) New onset of congestive heart failure: Status: Acute Problem details: Patient did have an echocardiogram recently, in January, but I do not have the results of that. She also saw Cardiology around that same time, again I do not have those notes. Patient did not tolerate IV placement. Given oral furosemide with good diuresis and resolution of hypoxia. Started on outpatient torsemide with potassium. Ongoing outpatient monitoring of heart failure and optimizing heart failure management with guideline directed therapy. Recent echo results currently not available but should help guide therapy. (2) Delirium: Status: Acute Problem details: Hospitalized in [place] from July 13 to for delirium. Now at [address] [place] [address]. (3) Dementia: Status: Chronic Problem details: Fairly severe dementia. Slums score 11/30 last week. Needs ongoing 23/06 supervision (4) Weakness: Status: Acute Problem details: - appears to be acute on chronic, cause is unclear. Has declined over at least the past year and attempts to get her home PT and OT had failed. Patient admitted to [address] [place] [address] 2 days ago. Unable to ambulate. (5) Type 2 diabetes mellitus: Status: Chronic Problem details: - mealtime and bedtime Accu-Cheks with insulin sliding scale. (6) Hypothyroidism: Status: Chronic Problem details: Patient had TSH checked while at [facility] last week. I do not have the result. Continue current dose of levothyroxine. (7) Hypertension: Status: Chronic Problem details: Quite hypertensive on admission. Continue antihypertensives. Diuresis should help blood pressure. Outpatient consider additional medication for optimizing heart failure management. (8) Hypokalemia: Status: Acute Problem details: Potassium replacement for now. Consider spironolactone for heart failure if ongoing hypokalemia. DS: Summary Hospital Course Hospital Course: Galilea Steinberg is a 73 year old female with severe dementia. When she arrived on the floor, her family was not available to give history. History is gathered from the ER physician our EMR and the [facility] EMR. Galilea had been living at home up until few days ago when she was admitted to [address] [place] [address], where her daughter works, for frequent falls and decline at home. From what I can gather this appears to be in acute on chronic issue as there are a lot of notes over the past few years about frequent falls, she has used a walker for 5 years, PT and OT were ordered in January, but were unable to start due to no home care service in that area [place]. It sounds like falls have become more frequent in the last few days to weeks and she has developed confusion since being admitted to [facility]. She is now requiring 3-4 people to transfer her where as she had been independent at home just a few days before. Here is a recent timeline of events: 06/22/24 Seen in [facility] ED for fall. Diagnosed with UTI, started on Keflex for 7days. Urine culture showed less than 10,000 colonies mixed sabrina. At that time also had small left costophrenic angle blunting and mild interstitial prominence possibly representing early heart failure findings CT abdomen and pelvis showed no acute findings. CT head showed no acute findings. 06/24/24 Saw Aileen Chun P.A.-C. in clinic, frequent falls over the past year noted, about one fall per week, gabapentin decreased, in-home PT/OT ordered. 07/13/24 [place] ER for weakness, mild hypokalemia, delirium. 07/15/24 admitted to [facility] alf facility. Since admission she has not required supplemental oxygen. She is not appear to be dyspneic she has no complaints of fever, shortness of breath, chest pain. She reported good appetite this morning. She has no other concerns. Status at Discharge Cognitive/behavioral status at discharge: Dementia. Overall status at discharge: patient is progressing back to baseline Time Spent with Patient Time attestation: Total time spent providing and/or coordinating discharge services: Exam Narrative: Exam Narrative: This morning patient is pleasant and cooperative but confused and disoriented. She tells me she is in misery. She does not know that she is in a hospital or why she is hospitalized. She does not remember any of the recent medical events outlined above. Respirations with an occasional basilar crackle. Diminished breath sounds without wheezing. Cardiovascular: S1, S2, regular rate and rhythm. Abdomen: Bowel sounds active. Abdomen is soft without tenderness. Extremities without edema. Const: Vital Signs, click to edit/add: Vital Signs - 24 hr 07/17/24 18:26 07/17/24 18:36 07/17/24 18:45 Temperature 98.5 F Pulse Rate 96 89 Pulse Rate [Pulse Oximeter] 96 Pulse Rate [Right Pulse Oximeter] Respiratory Rate 32 H Blood Pressure Blood Pressure [Ri ght Arm] Blood Pressure [Ri ght Forearm] 198/100 H Pulse Oximetry 84 L 92 94 Oxygen Delivery Me thod Room Air Nasal Cannula Oxygen Flow Rate 3 07/17/24 19:04 07/17/24 19:15 07/17/24 19:28 Temperature Pulse Rate 92 Pulse Rate [Pulse Oximeter] Pulse Rate [Right Pulse Oximeter] Respiratory Rate Blood Pressure 180/97 H Blood Pressure [Ri ght Arm] Blood Pressure [Ri ght Forearm] Pulse Oximetry 97 92 Oxygen Delivery Me thod Room Air Oxygen Flow Rate 07/17/24 23:33 07/17/24 23:33 07/18/24 03:00 Temperature 98.9 F 98.5 F Pulse Rate Pulse Rate [Pulse Oximeter] Pulse Rate [Right Pulse Oximeter] 82 78 Respiratory Rate 20 20 20 Blood Pressure Blood Pressure [Ri ght Arm] 125/62 124/72 Blood Pressure [Ri ght Forearm] Pulse Oximetry 91 91 91 Oxygen Delivery Me thod Room Air Room Air Room Air Oxygen Flow Rate 3 07/18/24 07:00 07/18/24 07:00 Temperature 97.5 F L Pulse Rate Pulse Rate [Pulse Oximeter] Pulse Rate [Right Pulse Oximeter] 78 Respiratory Rate 18 Blood Pressure Blood Pressure [Ri ght Arm] 119/70 Blood Pressure [Ri ght Forearm] Pulse Oximetry 91 Oxygen Delivery Me thod Room Air Room Air Oxygen Flow Rate Documenting provider has reviewed patient's vital signs: yes DS: Data Data Completed and Pending Labs on day of discharge: Labs from last 24 hours 07/18/24 07/17/24 07/17/24 08:15 22:32 22:20 WBC 10.53 RBC 4.04 Hgb 11.5 L Hct 36.6 MCV 91 MCH 29 MCHC 31 L RDW Coeff of Jase 15.1 Plt Count 152 Neut % (Auto) 80.9 H Lymph % (Auto) 12.1 L [place] % (Auto) 5.7 Eos % (Auto) 0.9 Baso % (Auto) 0.2 Neut # (Auto) 8.50 H Lymph # (Auto) 1.30 [place] # (Auto) 0.60 Eos # (Auto) 0.10 Baso # (Auto) 0.02 Abs Immat Gran (auto) 0.02 Imm/Tot Granulo (auto) 0.2 Sodium 139 Potassium 3.3 L Chloride 104 Carbon Dioxide 27 Anion Gap 8 BUN 13 Creatinine 0.6 Estimated Creat Clear 49.03 Estimated GFR 94 Glucose 114 Lactate Calcium 8.6 Magnesium Total Bilirubin Direct Bilirubin AST ALT Alkaline Phosphatase Troponin I C-Reactive Protein NT-Pro-B Natriuret Pep Total Protein Albumin Urine Color Yellow Urine Appearance Slightly Cloudy A Urine pH 5.5 Ur Specific [place] 1.020 Urine Protein Negative Urine Glucose (UA) Negative Urine Ketones Negative Urine Blood 3+ A Urine Nitrite Negative Urine Bilirubin Negative Urine Urobilinogen 0.2 Ur Leukocyte Esterase Negative Urine RBC 2-5 A Urine WBC 0-2 Ur Squamous Epith Cells Few Urine Bacteria None SARS-CoV-2 (PCR) Influenza Type A (PCR) Influenza Type B (PCR) RSV (PCR) Lab Acknowledgement Cancelled 07/17/24 19:12 WBC 9.96 RBC 4.29 Hgb 12.1 Hct 39.6 MCV 92 MCH 28 MCHC 31 L RDW Coeff of Jase 15.2 Plt Count 164 Neut % (Auto) 84.7 H Lymph % (Auto) 9.0 L [place] % (Auto) 4.7 Eos % (Auto) 1.1 Baso % (Auto) 0.3 Neut # (Auto) 8.40 H Lymph # (Auto) 0.90 [place] # (Auto) 0.50 Eos # (Auto) 0.11 Baso # (Auto) 0.03 Abs Immat Gran (auto) 0.02 Imm/Tot Granulo (auto) 0.2 Sodium 141 Potassium 3.2 L Chloride 107 Carbon Dioxide 27 Anion Gap 7 BUN 14 Creatinine 0.7 Estimated Creat Clear 49.03 Estimated GFR 90 Glucose 110 Lactate 1.5 Calcium 8.9 Magnesium 1.7 Total Bilirubin 0.7 Direct Bilirubin 0.4 AST 17 ALT 16 Alkaline Phosphatase 82 Troponin I < 0.01 L C-Reactive Protein 2.8 H NT-Pro-B Natriuret Pep 1300 Total Protein 6.9 Albumin 4.3 Urine Color Urine Appearance Urine pH Ur Specific [place] Urine Protein Urine Glucose (UA) Urine Ketones Urine Blood Urine Nitrite Urine Bilirubin Urine Urobilinogen Ur Leukocyte Esterase Urine RBC Urine WBC Ur Squamous Epith Cells Urine Bacteria SARS-CoV-2 (PCR) Negative SARS-CoV-2 Influenza Type A (PCR) Negative PCR FLU A Influenza Type B (PCR) Negative PCR FLU B RSV (PCR) Negative PCR RSV Lab Acknowledgement Preliminary micro results at discharge 07/17/24 22:20 Urine Culture - Preliminary Urine,Clean Catch Culture in Progress Imaging CT scan - head: Radiologist's impression: Indication : Trauma. Technique : CT of the brain without intravenous contrast. Comparison: None relevant available at the time of interpretation. Findings: No acute blurring of the phan-white differentiation. There is no intracranial hemorrhage. The ventricles are proportionate to the cerebral sulci. The 4th ventricle is midline. Basal cisterns appear patent. No abnormal extra-axial fluid collection identified. Moderate parenchymal volume loss. There is moderate patchy periventricular hypodensity, favored to represent chronic ischemic microvascular disease. There is no intracranial mass, mass effect or midline shift identified. Severe dolichoectasia of the vertebrobasilar system. No depressed calvarial fracture. Impression: 1. No acute intracranial process. 2. Moderate chronic ischemic microvascular disease. 3. Severe dolichoectasia of the vertebrobasilar system. Chest x-ray: Radiologist's impression: INDICATION: Fall, shortness of breath. TECHNIQUE: Chest 1 view. COMPARISON: None. FINDINGS: Cardiovascular and mediastinum: Borderline enlarged cardiac silhouette despite portable technique. Atherosclerotic and uncoiled thoracic aorta. Lungs and pleural spaces: Mild diffuse increased interstitial lung markings. Prominent pulmonary arteries within the samina bilaterally. No definite pleural effusion. No pneumothorax. Bones and soft tissues: Suture anchor in the right humeral head. Otherwise, unremarkable for age. IMPRESSION: 1. Mild diffuse increased interstitial lung markings, may represent pulmonary edema. 2. Prominent pulmonary arteries within the samina bilaterally, may reflect pulmonary arterial hypertension. Discharge Plan Discharge Disposition: [facility] Date of Admission: 07/17/24 23:16 Attending Provider on Discharge: Freddie Plunkett Primary Care Provider: Provider,Not a Local Condition: Stable Anticipated Discharge Date/Time: 07/18/24 09:31 Discharge Medications: New potassium chloride 10 mEq capsule, extended release 20 meq PO DAILY Qty: 60 0RF torsemide 20 mg tablet 20 mg PO DAILY Qty: 30 0RF Continued atorvastatin 80 mg tablet 80 mg PO HS metoprolol succinate 50 mg tablet extended release 24 hr 100 mg PO DAILY sertraline 100 mg tablet 200 mg PO HS olanzapine 5 mg tablet 5 mg PO HS Patient Comments: plus daily prn dose, see other order levothyroxine 125 mcg tablet 125 mcg PO DAILY lisinopril 30 mg tablet 30 mg PO DAILY gabapentin 300 mg capsule 300 mg PO TID omeprazole 20 mg capsule,delayed release(DR/EC) 20 mg PO DAILY aspirin 81 mg tablet,chewable 1 tab PO DAILY albuterol sulfate 90 mcg/actuation HFA aerosol inhaler 2 puff inhalation Q4H PRN ezetimibe 10 mg tablet 10 mg PO HS olanzapine 5 mg tablet 5 mg PO DAILY PRN Rx Instructions: for agitation Discharge Orders: Discharge Order (Routine); Ordered 07/18/24 Ordered By: Freddie Plunkett Activity Level: Activity as Tolerated Discharge Diet: Heart Healthy (2 gm sodium, low fat) Follow Up Appointments: Provider,Not a Local [Primary Care Provider] - Forms: [facility] Info Instructions Discharge Comments: Check daily weight, pulse and blood pressure to monitor new heart failure medication Admit to: SNF Can use facility standing orders?: Yes Code Status: DNR/DNI Urinary Catheter: No Lab Orders: Check basic metabolic panel in 3-4 days
== END 2024-07-18 11:43 ==
LOC: ED 22:02 → MEDSURG 23:16
PROVIDERS: Family Medicine; Admitting Provider Family Medicine; Emergency Provider Family Medicine; Visit Provider Family Medicine
DX: I11.0 Hypertensive heart disease with heart failure (principal); R60.0 Localized edema; F03.C0 Unspecified dementia, severe, without behavioral disturbance, psychotic disturbance, mood disturbance, and anxiety; R53.1 Weakness; E11.9 Type 2 diabetes mellitus without complications; E87.6 Hypokalemia; E03.9 Hypothyroidism, unspecified; E46 Unspecified protein-calorie malnutrition; R29.6 Repeated falls; Z79.82 Long term (current) use of aspirin; Z66 Do not resuscitate
CPT/HCPCS: 36415; 70450; 71045; 72125; 80048; 80076; 81001; 82962; 83605; 83735; 83880; 84484; 85025; 86140; 87081; 87086; 87631; 93005; 96374; 97161; 99284; 99285; A9270; G0378

== ENCOUNTER 2024-07-29 10:18 | Outpatient (CLI) | payer MEDICARE, MEDICAID, OTHER, SELFPAY ==
--- NOTE | 2024-07-29 10:15 | CRLHL7_ITS ---
For Patients: As a result of the 21st Century Cures Act, medical imaging exams and procedure reports are released immediately into your electronic medical record. You may view this report before your referring provider. If you have questions, please contact your health care provider. INDICATION: Difficulty swallowing TECHNIQUE: Modified barium swallow. Fluoroscopic time 1 minute 27 seconds. FINDINGS/IMPRESSION: Anatomical structures are normal. Swallowing mechanism appears within normal limits. No episodes of penetration or aspiration. No significant findings. Dictated by Jaspreet Davis MD @ 07/29/2024 1:12:43 PM (Electronically Signed)
== END 2024-07-29 10:19 | disposition home or self-care (01) ==
LOC: RAD 10:22
PROVIDERS: PCP Internal Medicine; Visit Provider Nurse Practitioner Gerontology
DX: R13.10 Dysphagia, unspecified (principal)
CPT/HCPCS: 74230; 92611